=== PATIENT | male | born 1950 | race Caucasian/White ===

== ENCOUNTER 2017-01-23 10:49 | Day surgery (SDC) | payer MEDICARE, BC ==
[2017-01-22 08:26] VITALS: BMI 28.2
[2017-01-23] MEDS ORDERED: CEFAZOLIN/Water 2 GM/20 ML SYRINGE ONE (11:38)
[2017-01-23] MEDS ORDERED: Thrombin 5000 UNITS/5 ML VIAL ONE (11:59)
[2017-01-23] MEDS ORDERED: Fentanyl 250 MCG/5 ML VIAL ONE (12:07)
[2017-01-23] MEDS ORDERED: Lidocaine 2% Jelly 5 ML TUBE ONE (12:07)
[2017-01-23] MEDS ORDERED: Bupivacaine/Epinephrine 0.25% 30 ML VIAL ONE (13:55)
[2017-01-23] MEDS ORDERED: Fentanyl 100 MCG/2 ML VIAL ONE (15:05)
[2017-01-23] MEDS ORDERED: HYDROcodone/Acetaminophen 5/325 mg Tablet ONE (16:40)
[2017-01-23] MEDS ORDERED: Propofol 200 MG/20 ML VIAL ONE (17:04)
[2017-01-23] MEDS ORDERED: Esmolol 100 MG/10 ML VIAL ONE (17:04)
[2017-01-23] MEDS ORDERED: Dexamethasone 20 MG/5 ML VIAL ONE (17:04)
[2017-01-23] MEDS ORDERED: Lidocaine 1% PF 5 ML VIAL ONE (17:04)
[2017-01-23] MEDS ORDERED: PHENYLEPHRINE-NS 100 MCG/ML 10 ML SYRINGE ONE (17:04)
[2017-01-23] MEDS ORDERED: Glycopyrrolate 0.2 MG/ML 5 ML SYRINGE ONE (17:04)
[2017-01-23] MEDS ORDERED: Ondansetron HCl/PF 4 MG/2 ML Vial ONE (17:04)
[2017-01-23] MEDS ORDERED: Vecuronium 10 MG VIAL ONE (17:04)
--- NOTE | 2017-01-24 14:25 | OP ---
DATE OF OPERATION: 01/23/2017 PREOPERATIVE DIAGNOSIS: The patient is a 66-year-old white male who has had lumbar spondylosis with some back pain and neurogenic claudication symptoms, evaluated on multiple times in the past and has continued to do adequately with conservative treatment up until about 6 weeks ago. The patient devel oped worsening of his neurogenic claudication and symptoms consistent with a left L3 radiculopathy. The symptoms and signs were found to be due to, 1. Lumbar spinal stenosis. 2. Far lateral disk herniation on the left at L3-L4. The preoperative plan was L4-L5 lumbar laminectomy, plus or minus diskectomy and far lateral L3-L4 ex traforaminal decompression. OPERATING SURGEON: Jai Calhoun M.D. ANESTHESIA: General. OPERATIVE REPORT AND FINDINGS: Procedure #1: The L4-L5 laminectomy was accomplished by a midline incision exposing the spinous proc ess of 4 and 5, subperiosteal elevation of the lumbodorsal fascia and the paraspinous muscles with a self-retaining retractor to visualize the L4-L5 interspace. Then, with excision of a small amount of the caudal edge of the L4 lamina and the rostral edge of the L5 lamina, along with spinous process, the L4-L5 interspace was exposed. High speed drill was used in the laminotomy as well as bone biting instruments. The ligamentum flavum was then teased off the edges of the upper part of L5 and that c arried out laterally to expose the L5 roots on both sides and then in the lateral recess, the bony li gament and medial facet hypertrophy components were removed, opened up the lateral recesses generousl y and freed up the L5 roots bilaterally. On the left side, the L4-L5 disk was inspected with mobiliz ation and retraction of the left L5 root medially. The annulus was tough despite the apparent bulge on the annulus on the left side on the imaging report and pictures. The patient's annulus was then c auterized with the bipolar and some existing liquid to try to stiffen and scarify for lessening likel ihood of herniation and the disk was not opened up. The incision was packed open for closing later a fter the second procedure. Procedure #2: Because of the incisions would be overlapping from rostral to caudal, paramedian incis ion was not made for the left L3-L4 root, but the midline incision carried farther rostrally. The patel bcutaneous fatty layer and skin were mobilized laterally and held with the self-retaining retractor a nd then the paraspinous muscle incision made about 22 cm lateral to the spinous process midline. Felipe nt dissection with my finger then reached the palpable facet complexes of both 2-3 and 3-4 between wh ich lies the L3 neural foramen. With that palpation, then periosteal elevator was used to tease the muscle off of the bony processes somewhat, then a self-retaining Meyerding retractor was used to retr act while holding the retraction for working on the bony processes. The soft tissue was teased off o f the caudal edge of the superior facet process of L3 and around the medial part of the pars interart icularis of L3 and then onto the caudal facet process of L3 and the rostral superior facet process of L4 on the left. This can solomon around the soft tissue that was overlying the L3 root as it exited the L3 neural foramen. High speed drill was then used to drill the rostral tip and thin all the way down until it was almost gone along with the inferior facet process of L3 and this opened up a window so I could get under the superior facet process of L4, continue across under the inferior facet proc ess of L3 removing bone and then consequently the ligamentous attachment encircling the nerve root, r emoving the bony as well as the ligamentous roof of that tight L3 lateral foramen. In doing so, I fo und the L3 root comes around the pedicle of L3, followed it laterally, removed more soft tissue dorsa l to the root and eventually got out past the apparent bulge underneath, but had removed the whole of the roof. After the nerve was clearly identified, then just rostral to the L4 pedicle on the left, I teased through the fatty material, got down to the disk annulus and cauterized and incised it by re aching laterally with a blunt nerve hooks and ball probe, I was unable to dislodge any significant di sk fragments from laterally under the root and yet I feel had dorsally decompressed the root very wel l. That was indeed the expected outcome as the lateral bulge of the annulus and disk appeared to be a chronic kind of process from the imaging information. The wound was then irrigated vigorously at both incision sites. The paramedian incision of L3 and th e midline incision of L4-L5 were instilled in the muscle with 0.25% Marcaine solution to a total of 3 0 mL. This was let to sit for a little while before further irrigation. The muscle fascia at L3 was carefully reapproximated. The tough fatty layer was carefully reapproximated to the midline and the n Maggie's fascia closed followed by subcuticular closure of 3-0 Vicryl in the subcuticular skin jus ins. At L4-L5, the fascia was closed in the midline with 0 Vicryl and then Maggie's fascia, and the subcuticular fascia closed with both 0 Vicryl and 3-0 Vicryl. There was excellent midline closure fo r both separate levels. The incision was covered with Steri-Strips after Mastisol and soft cotton sp onge dressing was placed with tape prior to anesthesia, reversing anesthesia extubation and then take n to the recovery room. The patient had no complications. FINAL DIAGNOSES: The patient is a 66-year-old white male who has had lumbar spondylosis with some ba ck pain and neurogenic claudication symptoms, evaluated on multiple times in the past and has continu ed to do adequately with conservative treatment up until about 6 weeks ago. The patient developed wo rsening of his neurogenic claudication and symptoms consistent with a left L3 radiculopathy. The sym ptoms and signs were found to be due to, 1. Lumbar spinal stenosis. 2. Far lateral disk herniation on the left at L3-L4. All of the goals were accomplished and the patient was transported to post anesthesia recovery for po st anesthesia recovery. The patient tolerated the procedure well. There was blood loss that maybe o f 100 mL total both procedures and the patient was awake in a postoperative recovery, moving all extr emities and little confused, not really in pain.
== END 2017-01-23 19:50 | disposition home or self-care (01) ==
LOC: SDC 10:49
PROVIDERS: ATTEND Anesthesiology
PROC: 0ST20ZZ Resection of Lumbar Vertebral Disc, Open Approach (ICD-10-PCS; principal; 2017-01-23)
PROC: 00NY0ZZ Release Lumbar Spinal Cord, Open Approach (ICD-10-PCS; 2017-01-23)
DX: M48.062 Spinal stenosis, lumbar region with neurogenic claudication (principal); M51.26 Other intervertebral disc displacement, lumbar region; Z88.1 Allergy status to other antibiotic agents
CPT/HCPCS: 36416; 76001; J1100; J2001; J2405; J2704; J3010